=== PATIENT | female | born 1975 | race Caucasian/White ===

== ENCOUNTER 2017-08-26 19:09 | Emergency (ER) | payer SELFPAY ==
[~2017-08-26] VITALS: Ht 154.9 cm; Wt 73.0 kg
[2017-08-26 19:22] VITALS: Ht 154.9 cm; Wt 73.0 kg
[2017-08-26] MEDS ORDERED: FURO-110 PO (20:30)
--- NOTE | 2017-08-26 20:37 | ERD ---
ER Documentation Chief Complaint Date/Time DATE: 08/26/17 TIME: 20:36 Chief Complaint bilateral foot swelling for 2 weeks with pain HPI Patient is a 42-year-old female with cerebral palsy and panic disorder who presents with swelling of the feet bilaterally. She also says that painful at 8 out of 10. They have been swollen for a few weeks now. She has been on her feet a lot and is currently homeless. She denies any injuries, bites, or wounds. She has no fevers. She does not currently have a primary doctor. She says that she is visiting from [place] and plans to move back in January 2018. Upon review of old medical records this is the patient's first visit to the emergency department. ROS All systems reviewed and are negative except as per history of present illness. Medications Home Meds Active Scripts Furosemide* (Lasix*) 20 Mg Tablet, 20 MG PO DAILY, #20 TAB Prov:RAH VELA MD 08/26/17 Allergies Allergies: Coded Allergies: Penicillins (Verified Allergy, Unknown, hives, 08/26/17) alprazolam (Verified Allergy, Unknown, palpitation, 08/26/17) buspirone (Verified Allergy, Unknown, palpitations, 08/26/17) PMhx/Soc Medical and Surgical Hx: pt denies Surgical Hx Anesthesia Reaction: No Hx Neurological Disorder: Yes (cerebral plasy) Hx Respiratory Disorders: No Hx Cardiac Disorders: No Hx Psychiatric Problems: Yes (anxiety disorder) Hx Miscellaneous Medical Probl: No Hx Alcohol Use: No Hx Substance Use: No Hx Tobacco Use: No Smoking Status: Never smoker FmHx Family History: No diabetes Physical Exam Vitals Vital Signs Date Time Temp Pulse Resp B/P Pulse Ox O2 Delivery O2 Flow Rate FiO2 08/26/17 19:22 98.8 84 16 132/87 97 Physical Exam Const: No acute distress Head: Atraumatic Eyes: Normal Conjunctiva ENT: Normal External Ears, Nose and Mouth. Neck: Full range of motion..~ No meningismus. Resp: Clear to auscultation bilaterally Cardio: Regular rate and rhythm, no murmurs Abd: Soft, non tender, non distended. Normal bowel sounds Skin: No petechiae or rashes Back: No midline or flank tenderness Ext: 1+ pitting edema bilateral lower extremities Neur: Awake and alert Psych: Normal Mood and Affect Procedures/MDM Patient is a 42-year-old female presents with bilateral lower extremity swelling. I believe this is likely related to being wheelchair dependent and I doubt CHF. There is no shortness of breath or other serious abnormality at this time. She has no sign of infection or sepsis at this time. I believe outpatient management is appropriate. The patient will be given a short course of Lasix daily. She will need to follow-up with the local clinics that she does not currently have a primary doctor. She also be given a list of the local long-term resources that she has requested. She can return for any worsening symptoms. Departure Diagnosis: Primary Impression: Edema Edema type: unspecified Qualified Code: R60.9 - Edema, unspecified type Condition: Fair Patient Instructions: Peripheral Edema, Bilateral Referrals: [facility] YOU HAVE RECEIVED A MEDICAL SCREENING EXAM AND THE RESULTS INDICATE THAT YOU DO NOT HAVE A CONDITION THAT REQUIRES URGENT TREATMENT IN THE EMERGENCY DEPARTMENT. FURTHER EVALUATION AND TREATMENT OF YOUR CONDITION CAN WAIT UNTIL YOU ARE SEEN IN YOUR DOCTORS OFFICE WITHIN THE NEXT 1-2 DAYS. IT IS YOUR RESPONSIBILITY TO MAKE AN APPOINTMENT FOR FOL-UP CARE. IF YOU HAVE A PRIMARY DOCTOR --you should call your primary doctor and schedule an appointment IF YOU DO NOT HAVE A PRIMARY DOCTOR YOU CAN CALL OUR PHYSICIAN REFERRAL HOTLINE AT IF YOU CAN NOT AFFORD TO SEE A PHYSICIAN YOU CAN CHOSE FROM THE FOLLOWING [facility] CLINICS [facility] [address] [facility]. [facility] [address] [facility] [facility] [address] [facility] [facility] [address] [facility]. [facility] [address] [facility]. [facility] [address] Additional Instructions: Call your primary care doctor TOMORROW for an appointment during the next 1-2 days.See the doctor sooner or return here if your condition worsens before your appointment time. RAH VELA MD Aug 26, 2017 20:37
== END 2017-08-26 20:45 | disposition home or self-care (01) ==
LOC: E/R 19:09
DX: R60.0 Localized edema (principal)
CPT/HCPCS: 99283